=== PATIENT | male | born 1995 | race Caucasian/White ===

== ENCOUNTER 2020-11-04 22:24 | Emergency (ER) | payer OTHER ==
[~2020-11-04] VITALS: Ht 177.8 cm; Wt 72.6 kg
[2020-11-04 22:28] VITALS: BP 137/94
--- NOTE | 2020-11-04 22:28 | NUR ---
Patient arrived to ED via private vehicle accompanied by his fiance. As per patient he hit his head while ridding his horse. States he doesn't remember if he hit his head on a metal fence or the head of the horse. Patient came in walking to ED room, is awake, alert and oriented to self and place, disoriented to time. As per patient "I don't remember what happened". Patient's fiance states that he laid unconsious on the floor for about 10 minutes. [facility] was on seen but patient refused transport. Patient's pupils are equal and reactive to light. There is superficial abrassion to the right side of forehed right above his eyebrow. Patient states he is allergic to penicillin and has reocurrent migranes, denies any other medical history or allergies. Patient sitting comfortably in bed, patient's fiance at bedside. Patient denies any needs at the moment.
--- NOTE | 2020-11-04 22:44 | ER.PDOC ---
General Chief Complaint: Head Injury Stated Complaint: HEAD INJURY Time seen by MD: 22:41 Source: patient Exam Limitations: no limitations History of Present Illness Initial Comments Headache status post fall off a horse. Patient hit his head on the ground. He denies neck pain. No other injury. Occurred: this evening Severity: moderate Location: global Method of Injury: fell Remembers: injury, coming to hospital Past Medical History Medical History: no pertinent history Surgical History: no surgical history Family History Significant Family History: no pertinent family hx Social History Smoking: non-smoker Alcohol Use: occassionally Review of Systems Constitutional: no symptoms reported Respiratory: no symptoms reported Cardiovascular: no symptoms reported Gastrointestinal: no symptoms reported Genitourinary: no symptoms reported All Other Systems: Reviewed and Negative Physical Exam General Appearance: Alert, No Apparent Distress, WD/WN Head: No Evidence of Injury Eye: PERRL, EOMI, No nystagmus ENT: Nml external inspection, Pharynx nml Neck: non-tender, painless ROM, trachea midline Cardiovascular/Respiratory: Regular Rate, Rhythm, No M/R/G, Normal Peripheral Pulses, No JVD, Normal Breath Sounds, No Respiratory Distress Gastrointestinal: Normal Bowel Sounds, No Organomegaly, No Pulsatile Mass, Non Tender, Soft Back: Normal Inspection, No CVA Tenderness, No Vertebral Tenderness Extremities: Normal Range of Motion, Non-Tender, Normal Inspection, No Pedal Edema, No Calf Tenderness, Normal Capillary Refill NEURO/PSYCH: Alert, Oriented x3, Cooperative, Interactive, Mood/affect nml Cranial Nerves: Normal Hearing, Normal Speech, PERRL Motor/Sensory: No Motor Deficit, No Sensory Deficit, No Pronator Drift, Negative Babinski's Sign Skin: Normal Color, Warm/Dry Lymphatic: No Adenopathy Veda Coma Score Best Eye Response: (4) Open Spontaneously Best Verbal Response: (5) Oriented Best Motor Response: (6) Obeys Commands Results/Orders Results/Orders Orders - DONNA GREGORY MD Ct Head Wo Contrast (11/04/20 22:39) Ondansetron (Zofran Odt) (11/04/20 23:18) Vital Signs Date Time Temp Pulse Resp B/P (MAP) Pulse Ox O2 Delivery O2 Flow Rate FiO2 11/04/20 23:15 80 16 131/85 (100) 94 Room Air 7/31/21 23:00 94 18 125/74 (91) 100 Room Air 11/04/20 22:45 80 17 138/81 (100) 99 Room Air 11/04/20 22:28 18 11/04/20 22:28 97.8 77 17 11/04/20 22:28 97.8 77 17 97 11/04/20 22:28 97.8 77 17 137/94 (108) 97 Room Air EKG/XRAY/CT/US CT Comments: No acute intercranial abnormality on CT head, Sinus disease ER DEPART Departure Time of Disposition: 23:43 Disposition: 01 HOME / SELF CARE / HOMELESS Impression: Primary Impression: Head injury, acute Additional Impressions: Concussion without loss of consciousness Sinusitis Condition: Stable Patient Instructions: Head Injury, Adult, [id number] Referrals: PCP,UNKNOWN (PCP) PRIMARY CARE PROVIDER Additional Instructions: Amoxil Tylenol F/U with your PCP in 2-3 days Return to ED if worsening symptoms or concerns Duration or Time Spent with Pa: 20 min Problem Qualifiers Primary Impression: Head injury, acute Encounter type: initial encounter Qualified Codes: S09.90XA - Unspecified injury of head, initial encounter Additional Impressions: Concussion without loss of consciousness Encounter type: initial encounter Qualified Codes: S06.0X0A - Concussion without loss of consciousness, initial encounter Sinusitis Sinusitis location: unspecified location Chronicity: unspecified Qualified Codes: J32.9 - Chronic sinusitis, unspecified DONNA GREGORY MD Nov 04, 2020 22:44
[2020-11-04 22:45] VITALS: BP 138/81
--- NOTE | 2020-11-04 22:59 | DIREP ---
PROCEDURE:CT HEAD WITHOUT CONTRAST TECHNIQUE:Axial cuts were obtained through the head, without intravenous contrast material. The images were viewed at brain and bone settings. COMPARISON:None. INDICATIONS:Headache/Injury S/P fall FINDINGS: VENTRICLES:Normal. CEREBRUM:Normal. No intracranial hemorrhage, large territory infarct or space-occupying mass. CEREBELLUM:Normal. BRAINSTEM:Normal. SKULL:Normal. SINUSES:Mild right frontal and moderate/severe bilateral ethmoid and sphenoid sinus mucosal thickening. No air-fluid level OTHER:None CONCLUSION:Paranasal sinus disease. No acute intracranial abnormality or skull fracture. Dictated by: Rose Mary Stovall MD on 11/04/2020 at 10:55 PM
[2020-11-04 23:00] VITALS: BP 125/74
[2020-11-04 23:15] VITALS: BP 131/85
[2020-11-04] MEDS ORDERED: ZOFRAN ODT ONE (23:18)
--- NOTE | 2020-11-04 23:18 | NUR ---
Patient complaint of nausea, Dr. Holliday aware. Received verbal order to administered Zofran 4mg ODT.
--- NOTE | 2020-11-04 23:20 | NUR ---
Administered Zofran 4mg OD. No adverse reaction noted. Patient resting with eyes closed, denies any needs.
[2020-11-04 23:30] VITALS: BP 140/84
== END 2020-11-04 23:44 | disposition home or self-care (01) ==
LOC: ER 22:24
DX: S06.0X0A Concussion without loss of consciousness, initial encounter (principal); J32.9 Chronic sinusitis, unspecified; W01.0XXA Fall on same level from slipping, tripping and stumbling without subsequent striking against object, initial encounter; Y93.89 Activity, other specified; Y92.89 Other specified places as the place of occurrence of the external cause; Y99.8 Other external cause status
CPT/HCPCS: 70450; 99285